=== PATIENT | female | born 1965 | race African-American/Black ===

== ENCOUNTER 2016-07-10 15:21 | Emergency (ER) | payer BC, OTHER ==
[~2016-07-10] VITALS: Ht 170.2 cm; Wt 87.3 kg
[~2016-07-10 15:21] MED LIST: FLUO0.05 TOPICAL; MULT-135 PO; RANI150C PO
[2016-07-10 15:23] VITALS: BP 119/72; PULSE 64; RESP 16; TEMP 97.9; O2SAT 98
--- NOTE | 2016-07-10 15:50 | PD ---
HPI Chief Complaint: Injury Time Seen by Provider: 15:47 Travel History International Travel<30 days: No Contact w/Intl Traveler<30days: No Traveled to known affect area: No History of Present Illness HPI 50-year-old female presents to the emergency room for evaluation of bilateral shoulder, neck, left leg, and low back pain after slip and fall 1 week ago. [facility] and [facility] landing on her back with her left leg externally rotated. She was able to stand up immediately on her own. She denies hitting her head or loss of consciousness. States since then she has had intermittent pain in her shoulders, neck, and low back. She has been taking ibuprofen with moderate relief in symptoms. Pain is worsened with any range of motion. She has associated left upper extremity paresthesias that are intermittent. Patient denies lower extremity paresthesias , saddle anesthesia, loss of bowel or bladder control. PFSH Past Medical History Hx Anticoagulant Therapy: No Blood Disorders: No Cardiovascular Problems: No Diabetes: No Diminished Hearing: No Endocrine: No Gastrointestinal Disorders: No Genitourinary: No Immune Disorder: No Musculoskeletal: No Neurologic: No Respiratory: No Immunizations Current: Yes ?: Not Ovarian Cysts: Yes Past Surgical History Abdominal Surgery: Yes (LAPROSCOPIC, myomectomy 2004) Gynecologic Surgery: Yes (MYOMECTOMY) Hysterectomy: Yes Neurologic Surgery: No Other Surgery: Yes (Myomectomy) Social History Alcohol Use: No Tobacco Use: No Substance Use: No Allergies-Medications (Allergen,Severity, Reaction): Coded Allergies: No Known Allergies (Verified , 07/10/16) Reported Meds & Prescriptions Reported Meds & Active Scripts Active No Active Prescriptions or Reported Medications Review of Systems Except as stated in HPI: all other systems reviewed are Neg Physical Exam Narrative GENERAL: Well-developed, well-nourished female in no acute distress. Afebrile. Ambulatory. SKIN: Warm and dry. No erythema or ecchymosis. HEAD: Atraumatic. Normocephalic. No luna sign or raccoon eyes. EYES: PERRL, EOMI, no discharge or injection. No scleral icterus. ENT: Mucosa pink and moist. No erythema or exudates. No uvular edema. No uvular , palatal, or tonsillar deviation. Airway patent. EARS: Bilateral pinnae and external canals appear within normal limits. Bilateral tympanic membranes without erythema, dullness or perforation. No hemotympanum. NECK: Trachea midline. No JVD. No midline tenderness. Full range of motion. CARDIOVASCULAR: Regular rate and rhythm. No murmur appreciated. RESPIRATORY: No accessory muscle use. Clear to auscultation. Breath sounds equal bilaterally. No crackles, rales, wheezes, or rhonchi. BACK: No CVA tenderness. No rash. No point tenderness on palpation of the spine. Tenderness to palpation of the left paraspinous lumbar musculature. NEUROLOGICAL: Awake and alert. Cranial nerves 2 through 12 intact. Motor grossly within normal limits. Normal speech. Strength 5/5 and equal in upper and lower extremities. 2+ patellar and Achilles reflexes and equal bilaterally. PSYCHIATRIC: Appropriate mood and affect; insight and judgment normal. Data Data Last Documented VS Vital Signs Date Time Temp Pulse Resp B/P Pulse Ox O2 Delivery O2 Flow Rate FiO2 07/10/16 15:23 97.9 64 16 119/[address] Cerv Spine W/O Contrast (07/10/16 ) Spine, Lumbar - Ltd (Ap & Lat) (07/10/16 ) [facility] Medical Decision Making Medical Screen Exam Complete: Yes Emergency Medical Condition: Yes Medical Record Reviewed: Yes Differential Diagnosis Muscle spasm versus strain versus sprain versus fracture versus contusion Narrative Course 50-year-old female presents to the emergency room for evaluation of intermittent neck pain, low back pain, left leg pain, and shoulder pain after slip and fall 1 week ago. Patient has been ambulatory since onset of symptoms. No focal neurological deficits. She is resting comfortably in bed. No midline tenderness of the spine. Full range of motion of the back and neck. Patient reports left upper extremity paresthesias that are intermittent. For this reason CT was ordered. CT shows degenerative disc disease. X-ray of the lumbar spine is negative for acute fracture. No suspicion for occult fracture as patient is very well-appearing. Patient will be discharged with prescriptions for ibuprofen and Robaxin. Told to follow up with primary care physician and return for worsening symptoms. She understands and agrees to plan. Diagnosis Primary Impression: Low back strain Qualified Code: S39.012A - Low back strain, initial encounter Additional Impression: Degenerative disc disease, cervical Referrals: Primary Care Physician Patient Instructions: Acute Low Back Pain (ED), Cervical Strain (ED), General Instructions Additional Instructions: Rest and drink plenty of fluids. Take Robaxin as directed, as needed for pain. Take ibuprofen with food as directed, as needed for pain. Apply ice to the affected area for 20 minutes at a time, as needed for pain and swelling. Follow-up with a primary care physician. Return to the emergency room for worsening symptoms. Scripts No Active Prescriptions or Reported Meds Disposition: 01 DISCHARGE HOME Condition: Stable Roseann Martinez Jul 10, 2016 15:50
--- NOTE | 2016-07-10 16:22 | RADHPO ---
EXAM DATE/TIME: 07/10/2016 15:53 [facility] COMPARISON: No previous studies available for comparison. INDICATIONS : Lumbar spine pain post fall. MEDICAL HISTORY : None. SURGICAL HISTORY : None. ENCOUNTER: Initial ACUITY: 2 days PAIN SCORE: 6/10 LOCATION: Bilateral lumbar spine FINDINGS: There are five lumbar type vertebral bodies. There is minimal loss of disc space height at L3-4 and L5-S1. There is good preservation of vertebral body heights. Mild degenerative changes are present in the facets. CONCLUSION: 1. There is no evidence for acute compression. 2. MRI would be more sensitive for occult compression fracture. Chivo Nascimento MD FACR on July 10, 2016 at 16:19 Board Certified Radiologist. This report was verified electronically.
--- NOTE | 2016-07-10 17:30 | RADHPO ---
EXAM DATE/TIME: 07/10/2016 16:37 [facility] COMPARISON: No previous studies available for comparison. INDICATIONS : Fall 1 week ago, neck pain. RADIATION DOSE: 26.59 CTDIvol (mGy) MEDICAL HISTORY : None SURGICAL HISTORY : Hysterectomy. ENCOUNTER: Initial ACUITY: 1 week PAIN SCALE: 4/10 LOCATION: Bilateral neck TECHNIQUE: Volumetric scanning of the cervical spine was performed. Multiplanar reconstructions in the sagittal, coronal and oblique axial planes were performed. Using automated exposure control and adjustment o f the mA and/or kV according to patient size, radiation dose was kept as low as reasonably achievable to obtain optimal diagnostic quality images. FINDINGS: VERTEBRAE: Normal vertebral body height. ALIGNMENT: No evidence of subluxation. Markedly enlarged heterogeneous thyroid. C2-C3: No evidence of focal disc protrusion. Central canal normal diameter. Neural foraminal diameters withi n normal limits. C3-C4: No evidence of focal disc protrusion. Central canal normal diameter. Neural foraminal diameters withi n normal limits. C4-C5: Broad-based disc osteophyte complex. Moderate central canal narrowing. Mild bilateral neural foramina l narrowing. C5-C6: Broad-based disc osteophyte complex and bilateral facet arthrosis. Moderate left neural foraminal carol rowing. Moderate central canal narrowing. C6-C7: Broad-based disc bulge. Mild central canal narrowing. Moderate left neural foraminal narrowing. C7-T1: The bony spinal canal is normal in size. No evidence of disc bulge or herniation. The neural forami na are bilaterally patent. CONCLUSION: Multilevel degenerative findings with moderate severity central canal narrowing at C4-5 and C5-6. No evidence of fracture. Enlarged heterogeneous thyroid suggesting goiter. Filiberto Roman MD on July 10, 2016 at 17:23 Board Certified Radiologist. This report was verified electronically.
[2016-07-10] MEDS ORDERED: IBUP-232 PO (17:48)
[2016-07-10] MEDS ORDERED: ROBA750T PO (17:48)
== END 2016-07-10 17:54 | disposition home or self-care (01) ==
LOC: PHEFT 15:21
DX: S39.012A Strain of muscle, fascia and tendon of lower back, initial encounter (principal); M50.30 Other cervical disc degeneration, unspecified cervical region; M79.605 Pain in left leg; M25.511 Pain in right shoulder; M25.512 Pain in left shoulder; R20.2 Paresthesia of skin; Z87.42 Personal history of other diseases of the female genital tract; W01.0XXA Fall on same level from slipping, tripping and stumbling without subsequent striking against object, initial encounter; Y92.89 Other specified places as the place of occurrence of the external cause
CPT/HCPCS: 72100; 72125; 99284

== ENCOUNTER 2017-02-17 23:36 | Emergency (ER) | payer OTHER ==
[~2017-02-17] VITALS: Ht 170.2 cm; Wt 85.7 kg
[~2017-02-17 23:36] MED LIST changes: -FLUO0.05 TOPICAL; +IBUP-232 PO; -MULT-135 PO; -RANI150C PO; +ROBA750T PO
[2017-02-17 23:43] VITALS: BP 110/67; PULSE 66; RESP 18; TEMP 98.5; O2SAT 99
[2017-02-18] MEDS ORDERED: IBUPROFEN 600 MG TAB PO ONE (02:00)
--- NOTE | 2017-02-18 02:14 | PD ---
HPI Chief Complaint: ENT Complaint Time Seen by Provider: 01:08 Travel History International Travel<30 days: No Contact w/Intl Traveler<30days: No Traveled to known affect area: No History of Present Illness HPI Patient is a 51-year-old female with a few days of sore throat sharp pain worse with swallowing with cough congestion ..she's had chills but no measured temperature she's had no sick contacts she took Tylenol and Motrin without relief of her symptoms she has not seen another doctor for this most of her symptoms are related upper respiratory PFSH Past Medical History Hx Anticoagulant Therapy: No Blood Disorders: No Cardiovascular Problems: No Diabetes: No Diminished Hearing: No Endocrine: No Gastrointestinal Disorders: No Genitourinary: No Immune Disorder: No Musculoskeletal: No Neurologic: No Respiratory: No Immunizations Current: Yes Tetanus Vaccination: < 5 Years Influenza Vaccination: Yes ?: Not Menopausal: Yes Ovarian Cysts: Yes Past Surgical History Abdominal Surgery: Yes (LAPROSCOPIC, myomectomy 2004) Gynecologic Surgery: Yes (MYOMECTOMY) Hysterectomy: Yes Neurologic Surgery: No Other Surgery: Yes (Myomectomy) Social History Alcohol Use: No Tobacco Use: No Substance Use: No Allergies-Medications (Allergen,Severity, Reaction): Coded Allergies: No Known Allergies (Verified , 07/10/16) Reported Meds & Prescriptions Reported Meds & Active Scripts Active Ibuprofen 600 Mg Tab 600 Mg PO Q6H PRN Diphenhydramine Liq (Diphenhydramine HCl) 12.5 Mg/5 Ml Elix 12.5 Mg PO Q6H PRN Guaifenesin AC Liq (Guaifenesin-Codeine Liq) 100-10 Mg/5 Ml Syrp 10 Ml PO Q6H PRN Ibuprofen 600 Mg Tab 600 Mg PO Q8H PRN Robaxin (Methocarbamol) 750 Mg Tab 750 Mg PO Q8HR Review of Systems Except as stated in HPI: all other systems reviewed are Neg HENT: Positive: Sore Throat, Rhinorrhea, Congestion Physical Exam Narrative GENERAL: Awake alert nontoxic appearing no distress afebrile SKIN: Warm and dry. HEAD: Atraumatic. Normocephalic. EYES: Pupils equal and round. No scleral icterus. No injection or drainage. ENT: No nasal bleeding or discharge. Mucous membranes pink and moist. NECK: Trachea midline. No JVD. CARDIOVASCULAR: Regular rate and rhythm. RESPIRATORY: No accessory muscle use. Clear to auscultation. Breath sounds equal bilaterally. GASTROINTESTINAL: Abdomen soft, non-tender, nondistended. Hepatic and splenic margins not palpable. MUSCULOSKELETAL: Extremities without clubbing, cyanosis, or edema. No obvious deformities. NEUROLOGICAL: Awake and alert. No obvious cranial nerve deficits. Motor grossly within normal limits. Five out of 5 muscle strength in the arms and legs. Normal speech. PSYCHIATRIC: Appropriate mood and affect; insight and judgment normal. Data Data Last Documented VS Vital Signs Date Time Temp Pulse Resp B/P (MAP) Pulse Ox O2 Delivery O2 Flow Rate FiO2 02/18/17 02:26 62 16 110/66 (81) 99 02/17/17 23:43 98.5 Orders Orders Influenzae A/B Antigen (02/18/17 01:16) Group A Rapid Strep Screen (02/18/17 01:16) Ibuprofen (Motrin) (02/18/17 02:00) Strep Culture (Group A) (02/18/17 01:20) Ed Discharge Order (02/18/17 02:17) MDM Medical Decision Making Medical Screen Exam Complete: Yes Emergency Medical Condition: Yes Differential Diagnosis viral vs influenza vs strep URI vs bacterial tracheitis Narrative Course pt feels better with symptomatic treatment and swabs negative for flu and strep Diagnosis Primary Impression: Upper respiratory infection Qualified Codes: J06.9 - Acute upper respiratory infection, unspecified; B97.89 - Other viral agents as the cause of diseases classified elsewhere Scripts Ibuprofen (Ibuprofen) 600 Mg Tab 600 MG PO Q6H Y for Pain/Inflammation, #40 TAB 0 Refills Prov: Fam Membreno MD 02/18/17 Diphenhydramine Liq (Diphenhydramine Liq) 12.5 Mg/5 Ml Elix 12.5 MG PO Q6H Y for ALLERGIES, #1 BOTTLE 0 Refills Prov: Fam Membreno MD 02/18/17 Guaifenesin-Codeine Liq (Guaifenesin AC Liq) 100-10 Mg/5 Ml Syrp 10 ML PO Q6H Y for COUGH, #1 BOTTLE 0 Refills Prov: Fam Membreno MD 02/18/17 Disposition: 01 DISCHARGE HOME Condition: Good Fam Membreno MD Feb 18, 2017 02:14
[2017-02-18] MEDS ORDERED: DIPH12.5S PO (02:15)
[2017-02-18] MEDS ORDERED: GUAISYP4 PO (02:15)
[2017-02-18] MEDS ORDERED: IBUP-232 PO (02:16)
[2017-02-18 02:26] VITALS: BP 110/66
[2017-02-25] MEDS ORDERED: RANI150T PO ×2 (10:17→11:20)
[2017-02-25] MEDS ORDERED: CITA10TA4 PO (10:51)
[2017-02-25] MEDS ORDERED: FLUO0.05 TOPICAL (12:12)
== END 2017-02-18 02:38 | disposition home or self-care (01) ==
LOC: PHED 23:36 → PHEFT 02-18 02:38
DX: J06.9 Acute upper respiratory infection, unspecified (principal); B97.89 Other viral agents as the cause of diseases classified elsewhere
CPT/HCPCS: 87081; 87804; 87880; 99283

== ENCOUNTER 2017-04-19 14:38 | Emergency (ER) | payer OTHER ==
[~2017-04-19] VITALS: Ht 170.2 cm; Wt 85.0 kg
[~2017-04-19 14:38] MED LIST changes: +CITA10TA4 PO; +FLUO0.05 TOPICAL; +RANI150T PO; -ROBA750T PO
[2017-04-19 14:45] VITALS: BP 116/60; PULSE 86; RESP 16; TEMP 98.5; O2SAT 97
[2017-04-19] MEDS ORDERED: LEVO2.5S4 INH (15:00)
[2017-04-19] MEDS ORDERED: AMOX875T PO (15:12)
[2017-04-19] MEDS ORDERED: PRED20 PO (15:12)
--- NOTE | 2017-04-19 15:18 | PD ---
HPI Chief Complaint: ENT Complaint Time Seen by Provider: 14:56 Travel History International Travel<30 days: No Contact w/Intl Traveler<30days: No Traveled to known affect area: No History of Present Illness HPI 51-year-old female that presents to the ED for evaluation of cold-like symptoms. Patient has had cold-like symptoms for the past 4 days. Per patient his been having sinus congestion, sore throat as well as some mild cough. Per patient the sore throat has improved with [id number] remedies. Per patient the cough and congestion have not which is what concerns her. She does suffer from allergies but she follows with an point of care specialist who has started her on Flonase and other medications with minimal relief. Per patient the doctor there recommended that she get the shots to get rid of it and has not gotten it yet. Denies any fevers chills or sweats. Mild cough and sneezing. Has no allergies to medication. No other medical issues. Pain to the sinuses and per patient the discomfort 6 out of 10. PFSH Past Medical History Medical History: Denies Significant Hx Hx Anticoagulant Therapy: No Blood Disorders: No Cardiovascular Problems: No Diabetes: No Diminished Hearing: No Endocrine: No Gastrointestinal Disorders: No Genitourinary: No Immune Disorder: No Musculoskeletal: No Neurologic: No Respiratory: No Immunizations Current: Yes Tetanus Vaccination: > 5 Years Influenza Vaccination: Yes ?: Not LMP: MENOPAUSAL Menopausal: Yes Ovarian Cysts: Yes Past Surgical History Abdominal Surgery: Yes (LAPROSCOPIC, myomectomy 2004) Gynecologic Surgery: Yes (MYOMECTOMY) Hysterectomy: Yes Neurologic Surgery: No Other Surgery: Yes (Myomectomy) Social History Alcohol Use: No Tobacco Use: No Substance Use: No Allergies-Medications (Allergen,Severity, Reaction): Coded Allergies: No Known Allergies (Verified Allergy, Unknown, 04/19/17) Reported Meds & Prescriptions Reported Meds & Active Scripts Active Prednisone 20 Mg Tab 20 Mg PO BID 5 Days Amoxicillin 875 Mg Tab 875 Mg PO BID 10 Days Ibuprofen 600 Mg Tab 600 Mg PO Q8H PRN Reported Xyzal (Levocetirizine Dihydrochloride) 2.5 Mg/5 Ml Solution 1 [place] INH DIRECTED Review of Systems Except as stated in HPI: all other systems reviewed are Neg Physical Exam Narrative GENERAL: Well-nourished, well-developed patient in no apparent distress. SKIN: Warm and dry. HEAD: Atraumatic. Normocephalic. EYES: Pupils equal and round reactive to light and accommodation. No scleral icterus. No injection or drainage. ENT: No nasal bleeding or discharge. Mucous membranes pink and moist. TMs are clear with no sign of infection or perforation. No mastoid tenderness. Ear canals are intact bilaterally. No lymphadenopathy. Nostril mucosa is red and moist with clear mucus noted. sinus tenderness to palpation noted. Tonsils are not enlarged or swollen. No ulvua Deviation. Tongue is midline. NECK: Trachea midline. No JVD. No meningeal signs noted CARDIOVASCULAR: Regular rate and rhythm. RESPIRATORY: No accessory muscle use. Clear to auscultation. Breath sounds equal bilaterally. GASTROINTESTINAL: Abdomen soft, non-tender, nondistended. Hepatic and splenic margins not palpable. MUSCULOSKELETAL: Extremities without clubbing, cyanosis, or edema. No obvious deformities. NEUROLOGICAL: Awake and alert. No obvious cranial nerve deficits. Motor grossly within normal limits. Five out of 5 muscle strength in the arms and legs. Normal speech. PSYCHIATRIC: Appropriate mood and affect; insight and judgment normal. Data Data Last Documented VS Vital Signs Date Time Temp Pulse Resp B/P (MAP) Pulse Ox O2 Delivery O2 Flow Rate FiO2 04/19/17 14:45 98.5 86 16 116/60 (78) 97 Orders Orders Ed Discharge Order (04/19/17 15:15) [facility] Medical Decision Making Medical Screen Exam Complete: Yes Emergency Medical Condition: Yes Medical Record Reviewed: Yes Differential Diagnosis Sinusitis versus allergic rhinitis versus rhinosinusitis Narrative Course 51-year-old female that presents to the ED for evaluation of sinus congestion. Patient was properly examined and was found to have signs and symptoms consistent with appears to be sinusitis. Will treat with amoxicillin, prednisone. Given prescriptions for this. Told to continue taking over-the- counter remedies as needed and follow with her reporting developer for further eval. See ED worsening symptoms. Follow with PCP. Diagnosis Primary Impression: Sinusitis, acute Qualified Codes: J01.11 - Acute recurrent frontal sinusitis Patient Instructions: General Instructions Additional Instructions: Motrin and Tylenol for pain and fever. You can use [id number] antihistamine as well as well as Mucinex as needed for runny nose and congestion. Cough drops for cough as needed. Drink plenty of fluids. Follow-up with PCP. See ED for worsening symptoms. Med/Other Pt SpecificInfo: Prescription(s) given Scripts Prednisone (Prednisone) 20 Mg Tab 20 MG PO BID for 5 Days, #10 TAB 0 Refills Prov: Carlos Smith MD 04/19/17 Amoxicillin (Amoxicillin) 875 Mg Tab 875 MG PO BID for Infection for 10 Days, #20 TAB 0 Refills Prov: Carlos Smith MD 04/19/17 Disposition: 01 DISCHARGE HOME Condition: Turner Casanova Apr 19, 2017 15:18
== END 2017-04-19 15:29 | disposition home or self-care (01) ==
LOC: PHEFT 14:38
DX: J01.11 Acute recurrent frontal sinusitis (principal)
CPT/HCPCS: 99283